=== PATIENT | male | born 1965 | race African-American/Black ===

== ENCOUNTER 2018-04-13 14:41 | Inpatient (IN) | payer OTHER ==
[2018-04-13 17:09] VITALS: BMI 21.1
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
[2018-04-13] MEDS ORDERED: MENTHOL/PHENOL 1 EACH UD MM PRN (18:00)
[2018-04-13] MEDS ORDERED: MAG HYDROX/AL HYDROX/SIMETH 30 ML UNIT-DOSE CUP PO PRN (18:00)
[2018-04-13] MEDS ORDERED: P-EPHED 60MG/TRIPROLIDI 2.5MG TABLET PO PRN (18:00)
[2018-04-13] MEDS ORDERED: LOPERAMIDE HCL 2 MG CAPSULE PO PRN (18:00)
[2018-04-13] MEDS ORDERED: MAGNESIUM HYDROX 2400MG/30ML ORAL SUSPENSION 30 ML CUP PO PRN (18:00)
[2018-04-13] MEDS ORDERED: ACETAMINOPHEN 325 MG TABLET (FP) PO PRN (18:00)
[2018-04-13] MEDS ORDERED: NICOTINE POLACRILEX 4 MG GUM BC PRN (18:00)
[2018-04-13] MEDS ORDERED: IBUPROFEN 400 MG TABLET (FP) PO PRN (18:00)
[2018-04-13] MEDS ORDERED: MAGNESIUM CITRATE 300 ML BOTTLE PO PRN (18:00)
[2018-04-13] MEDS ORDERED: hydrOXYzine PAMOATE 50 MG CAPSULE (FP) PO PRN (18:00)
[2018-04-13] MEDS ORDERED: guaiFENesin/D-METHORPHAN HB 10 ML UNIT-DOSE CUPS PO PRN (18:00)
[2018-04-13] MEDS ORDERED: ALBUTEROL SO4 18 GM HFA INHALER IH PRN (18:03)
[2018-04-13] MEDS ORDERED: WITCH HAZEL 50% (TUCKS) 40 PAD/JAR PAD TP PRN (18:05)
[2018-04-13] MEDS ORDERED: PHENYLEPHRINE 0.25%/STARCH 1 EACH SUPP.RECT RC ONE (19:00)
[2018-04-13] MEDS ORDERED: METHADONE HCL 10 MG TABLET (FOR DETOX USE ONLY) PO ONE ×2 (19:00→23:00)
[2018-04-13] MEDS ORDERED: MELATONIN 5 MG TABLETS PO PRN (22:00)
[2018-04-13] MEDS ORDERED: METHADONE HCL 10 MG TABLET ONE ×2 (23:46→23:47)
[2018-04-13] MEDS: THIAMINE HCL 100 MG TABLET (FP) PO SCH (23:52)
[2018-04-13] MEDS: diazePAM 5 MG TABLET PO PRN (23:52)
[2018-04-14] MEDS ORDERED: METHADONE HCL 10 MG TABLET (FOR DETOX USE ONLY) PO ONE (10:00)
[2018-04-14 10:19] LABS: HEMATOCRIT 38.7 % (35.4-49); HEMOGLOBIN 13.1 GM/dL (11.7-16.9); MCH 31.2 pg (25.7-33.7); MCHC 33.9 g/dl (32.0-35.9); MEAN CELL VOLUME 92.3 fl (80-96); MEAN PLT VOLUME 9.8 fl (7.5-11.1); PLATELET COUNT 199 K/MM3 (134-434); RBC 4.19 M/mm3 (4.00-5.60); RDW 13.7 % (11.9-15.9); WHITE BLOOD COUNT 4.3 K/mm3 (4.0-10.0)
[2018-04-14] MEDS: diazePAM 5 MG TABLET PO PRN ×3 (10:35→22:10)
[2018-04-14] MEDS: NICOTINE 21 MG/24 HOURS TOPICAL PATCH TD SCH (10:35)
[2018-04-14] MEDS: PRENATAL VITAMINS W/ FOLIC ACID TABLET (FP) PO SCH (10:36)
[2018-04-14 11:28] LABS: CHLORIDE 106 mmol/L (98-107); POTASSIUM 4.4 mmol/L (3.5-5.1); SODIUM 142 mmol/L (136-145)
[2018-04-14 11:33] LABS: ALBUMIN 3.6 g/dl (3.4-5.0); ALK PHOS 94 U/L (45-117); ANION GAP 6 (8-16); BILIRUBIN,TOTAL 0.5 mg/dL (0.2-1.0); BLOOD UREA NITROGEN 21 mg/dL (7-18); CALCIUM 8.5 mg/dL (8.5-10.1); CO2 30 mmol/L (21-32); CREATININE 1.2 mg/dL (0.7-1.3); GLUCOSE,RANDOM 77 mg/dL (74-106); SGOT/AST 22 U/L (15-37); SGPT/ALT 27 U/L (12-78); TOT PROT 6.5 g/dl (6.4-8.2)
--- NOTE | 2018-04-14 13:31 | PN ---
BHS COWS - Scale Resting Pulse: 0= [place] 80 or Below Sweatin= Chills/Flushing Restless Observation: 3= Extraneous Movement Pupil Size: 0= Normal to Room Light Bone or Joint Aches: 4=Acute Joint/Muscle Pain Runny Nose/ Eye Tearin= None GI Upset > 30mins: 1= Stomach Cramp Tremor Observation of Outstretched Hands: 1= Tremor [place], Not Seen Yawning Observation: 1= 1-2x During Session Anxiety or Irritability: 2=Irritable/Anxious Goose Flesh Skin: 0=Smooth Skin COWS Score: 13 BHS Progress Note (SOAP) Subjective: ANXIETY,IRRITABILITY,LOSS OF APPETITE, MUSCLE ACHES,CRAMPS,ON LEGS AND NECK. REPORTS HX ARTHRITIS. Objective: 04/14/18 13:30 Vital Signs 04/14/18 04/14/18 04/14/18 06:29 06:30 09:28 Temperature 96.7 F L 98.5 F Pulse Rate 66 70 Respiratory 18 18 18 Rate Blood Pressure 118/61 124/76 Laboratory Tests 04/14/18 04/14/18 04/14/18 07:30 07:30 07:30 WBC 4.3 RBC 4.19 Hgb 13.1 Hct 38.7 MCV 92.3 MCH 31.2 MCHC 33.9 RDW 13.7 Plt Count 199 MPV 9.8 Sodium 142 Potassium 4.4 Chloride 106 Carbon Dioxide 30 Anion Gap 6 L BUN 21 H Creatinine 1.2 D Creat Clearance w eGFR > 60 Random Glucose 77 Calcium 8.5 Total Bilirubin 0.5 D AST 22 ALT 27 Alkaline Phosphatase 94 D Total Protein 6.5 Albumin 3.6 RPR Titer Nonreactive UA PENDING Assessment: 04/14/18 13:30 WITHDRAWAL SX Plan: CONTINUE DETOX FLEXERIL 10 MG PO TID INCREASE PO FLUIDS
[2018-04-14] MEDS: CYCLOBENZAPRINE HCL 10 MG TABLET (FP) PO SCH ×2 (14:12→22:10)
[2018-04-14 17:09] LABS: URINE APPEARANCE CLEAR; URINE BILIRUBIN NEGATIVE (<2.0 mg/dL); URINE BLOOD NEGATIVE (NEGATIVE); URINE COLOR LTYELLOW; URINE GLUCOSE (UA) NEGATIVE (NEGATIVE); URINE KETONE NEGATIVE (NEGATIVE); URINE LEUK ESTERASE NEGATIVE (NEGATIVE); URINE NITRITE NEGATIVE (NEGATIVE); URINE PROTEIN NEGATIVE (NEGATIVE); URINE UROBILINOGEN NEGATIVE mg/dL (0.2-1.0)
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
[2018-04-14] MEDS: GABAPENTIN 300 MG CAPSULE (FP) PO SCH (22:10)
[2018-04-14] MEDS: THIAMINE HCL 100 MG TABLET (FP) PO SCH (22:10)
[2018-04-15] MEDS: CYCLOBENZAPRINE HCL 10 MG TABLET (FP) PO SCH ×3 (07:46→22:10)
[2018-04-15] MEDS ORDERED: METHADONE HCL 5 MG TABLET (FOR DETOX USE ONLY) PO ONE (10:00)
[2018-04-15] MEDS: risperiDONE 1 MG TABLET (FP) PO SCH (10:38)
[2018-04-15] MEDS: NICOTINE 21 MG/24 HOURS TOPICAL PATCH TD SCH (10:38)
[2018-04-15] MEDS: GABAPENTIN 300 MG CAPSULE (FP) PO SCH ×2 (10:38→22:10)
[2018-04-15] MEDS: PRENATAL VITAMINS W/ FOLIC ACID TABLET (FP) PO SCH (10:38)
[2018-04-15] MEDS: diazePAM 5 MG TABLET PO PRN ×2 (10:41→22:10)
--- NOTE | 2018-04-15 13:33 | PN ---
S COWS - Scale Resting Pulse: 0= [place] 80 or Below Sweatin= Chills/Flushing Restless Observation: 3= Extraneous Movement Pupil Size: 2= Moderately Dilated Bone or Joint Aches: 1= Mild Discomfort Runny Nose/ Eye Tearin= None GI Upset > 30mins: 0= None Tremor Observation of Outstretched Hands: 2= Slight Tremor Visible Yawning Observation: 1= 1-2x During Session Anxiety or Irritability: 2=Irritable/Anxious Goose Flesh Skin: 0=Smooth Skin COWS Score: 12 S Progress Note (SOAP) Subjective: SLIGHT ANXIETY,REPORTS FLEXERIL EFFECTIVE FOR MUSCLE ACHES AND CRAMPS. Objective: 04/15/18 13:34 Vital Signs 04/15/18 04/15/18 04/15/18 06:07 06:30 10:14 Temperature 97.5 F L 97.4 F L Pulse Rate 75 65 Respiratory 18 18 18 Rate Blood Pressure 120/81 106/68 Laboratory Tests 04/14/18 04/14/18 04/14/18 07:30 07:30 07:30 WBC 4.3 RBC 4.19 Hgb 13.1 Hct 38.7 MCV 92.3 MCH 31.2 MCHC 33.9 RDW 13.7 Plt Count 199 MPV 9.8 Sodium 142 Potassium 4.4 Chloride 106 Carbon Dioxide 30 Anion Gap 6 L BUN 21 H Creatinine 1.2 D Creat Clearance w eGFR > 60 Random Glucose 77 Calcium 8.5 Total Bilirubin 0.5 D AST 22 ALT 27 Alkaline Phosphatase 94 D Total Protein 6.5 Albumin 3.6 Urine Color Urine Appearance Urine pH Ur Specific [place] Urine Protein Urine Glucose (UA) Urine Ketones Urine Blood Urine Nitrite Urine Bilirubin Urine Urobilinogen Ur Leukocyte Esterase RPR Titer HIV 1&2 Antibody Screen Negative HIV P24 Antigen Negative 04/14/18 04/14/18 07:30 14:00 WBC RBC Hgb Hct MCV MCH MCHC RDW Plt Count MPV Sodium Potassium Chloride Carbon Dioxide Anion Gap BUN Creatinine Creat Clearance w eGFR Random Glucose Calcium Total Bilirubin AST ALT Alkaline Phosphatase Total Protein Albumin Urine Color Ltyellow Urine Appearance Clear Urine pH 5.0 Ur Specific [place] 1.018 Urine Protein Negative Urine Glucose (UA) Negative Urine Ketones Negative Urine Blood Negative Urine Nitrite Negative Urine Bilirubin Negative Urine Urobilinogen Negative Ur Leukocyte Esterase Negative RPR Titer Nonreactive HIV 1&2 Antibody Screen HIV P24 Antigen Assessment: 04/15/18 13:34 WITHDRAWAL SX Plan: CONTINUE DETOX INCREASE PO FLUIDS
[2018-04-15] MEDS: THIAMINE HCL 100 MG TABLET (FP) PO SCH (22:10)
[2018-04-16] MEDS: CYCLOBENZAPRINE HCL 10 MG TABLET (FP) PO SCH ×3 (06:02→22:19)
[2018-04-16] MEDS: diazePAM 5 MG TABLET PO PRN (06:21)
[2018-04-16] MEDS ORDERED: METHADONE HCL 5 MG TABLET (FOR DETOX USE ONLY) PO ONE (10:00)
[2018-04-16] MEDS: GABAPENTIN 300 MG CAPSULE (FP) PO SCH ×2 (10:19→22:19)
[2018-04-16] MEDS: PRENATAL VITAMINS W/ FOLIC ACID TABLET (FP) PO SCH (10:20)
[2018-04-16] MEDS: NICOTINE 21 MG/24 HOURS TOPICAL PATCH TD SCH (10:22)
[2018-04-16] MEDS: risperiDONE 1 MG TABLET (FP) PO SCH (11:27)
[2018-04-16] MEDS: METHYL SALICYLATE/MENTHOL OINT 30 GM TUBE TP SCH (11:28)
--- NOTE | 2018-04-16 11:58 | PN ---
BHS Progress Note (SOAP) Subjective: Tremors, Body Aches, Fatigue, Sweating. Objective: PATIENT A & O X 2 (UNCERTAIN ABOUT CURRENT DAY / DATE). PATIENT OBSERVED AMBULATING ON UNIT. NO ACUTE DISTRESS. 04/16/18 11:56 Vital Signs Temperature 96.4 F L 04/16/18 09:15 Pulse Rate 102 H 04/16/18 09:15 Respiratory Rate 16 04/16/18 09:15 Blood Pressure 132/92 04/16/18 09:15 O2 Sat by Pulse Oximetry (%) Laboratory Tests 04/14/18 04/14/18 04/14/18 07:30 07:30 07:30 WBC 4.3 RBC 4.19 Hgb 13.1 Hct 38.7 MCV 92.3 MCH 31.2 MCHC 33.9 RDW 13.7 Plt Count 199 MPV 9.8 Sodium 142 Potassium 4.4 Chloride 106 Carbon Dioxide 30 Anion Gap 6 L BUN 21 H Creatinine 1.2 D Creat Clearance w eGFR > 60 Random Glucose 77 Calcium 8.5 Total Bilirubin 0.5 D AST 22 ALT 27 Alkaline Phosphatase 94 D Total Protein 6.5 Albumin 3.6 Urine Color Urine Appearance Urine pH Ur Specific [place] Urine Protein Urine Glucose (UA) Urine Ketones Urine Blood Urine Nitrite Urine Bilirubin Urine Urobilinogen Ur Leukocyte Esterase RPR Titer HIV 1&2 Antibody Screen Negative HIV P24 Antigen Negative 04/14/18 04/14/18 07:30 14:00 WBC RBC Hgb Hct MCV MCH MCHC RDW Plt Count MPV Sodium Potassium Chloride Carbon Dioxide Anion Gap BUN Creatinine Creat Clearance w eGFR Random Glucose Calcium Total Bilirubin AST ALT Alkaline Phosphatase Total Protein Albumin Urine Color Ltyellow Urine Appearance Clear Urine pH 5.0 Ur Specific [place] 1.018 Urine Protein Negative Urine Glucose (UA) Negative Urine Ketones Negative Urine Blood Negative Urine Nitrite Negative Urine Bilirubin Negative Urine Urobilinogen Negative Ur Leukocyte Esterase Negative RPR Titer Nonreactive HIV 1&2 Antibody Screen HIV P24 Antigen LABS NOTED. Assessment: 04/16/18 11:57 WITHDRAWAL SYMPTOMS. Plan: CONTINUE DETOX. INCREASE DAILY PO FLUID INTAKE.
[2018-04-16] MEDS: AMMONIUM LACTATE 12% LOTION 225 GM BOTTLE TP SCH ×2 (15:28→22:20)
[2018-04-16] MEDS: THIAMINE HCL 100 MG TABLET (FP) PO SCH (22:19)
[2018-04-17] MEDS: CYCLOBENZAPRINE HCL 10 MG TABLET (FP) PO SCH ×3 (05:38→22:11)
[2018-04-17] MEDS ORDERED: METHADONE HCL 10 MG TABLET (FOR DETOX USE ONLY) PO ONE (10:00)
[2018-04-17] MEDS: risperiDONE 1 MG TABLET (FP) PO SCH (10:31)
[2018-04-17] MEDS: PRENATAL VITAMINS W/ FOLIC ACID TABLET (FP) PO SCH (10:31)
[2018-04-17] MEDS: NICOTINE 21 MG/24 HOURS TOPICAL PATCH TD SCH (10:31)
[2018-04-17] MEDS: GABAPENTIN 300 MG CAPSULE (FP) PO SCH ×2 (10:31→22:11)
[2018-04-17] MEDS: METHYL SALICYLATE/MENTHOL OINT 30 GM TUBE TP SCH (10:32)
[2018-04-17] MEDS: AMMONIUM LACTATE 12% LOTION 225 GM BOTTLE TP SCH ×2 (10:32→22:12)
--- NOTE | 2018-04-17 14:48 | EKG ---
Test Reason : Blood Pressure : / mmHG Vent. Rate : 075 BPM Atrial Rate : 075 BPM P-R Int : 188 ms QRS Dur : 078 ms QT Int : 378 ms P-R-T Axes : 081 058 049 degrees QTc Int : 422 ms NORMAL SINUS RHYTHM ST ELEVATION, CONSIDER EARLY REPOLARIZATION, PERICARDITIS, OR INJURY ABNORMAL ECG NO PREVIOUS ECGS AVAILABLE Confirmed by MD Curtis Daniel ([id number]) on 04/17/2018 2:47:46 PM Referred By: Confirmed By:James Curtis MD
--- NOTE | 2018-04-17 15:02 | PN ---
BHS Progress Note (SOAP) Subjective: Tremors, Fatigue, Body Aches. Objective: PATIENT A & O X 3, OBSERVED AMBULATING ON UNIT. NO ACUTE DISTRESS. 04/17/18 15:01 Vital Signs Temperature 97.9 F 04/17/18 14:07 Pulse Rate 99 H 04/17/18 14:07 Respiratory Rate 20 04/17/18 14:07 Blood Pressure 134/87 04/17/18 14:07 O2 Sat by Pulse Oximetry (%) Laboratory Tests 04/14/18 04/14/18 04/14/18 07:30 07:30 07:30 WBC 4.3 RBC 4.19 Hgb 13.1 Hct 38.7 MCV 92.3 MCH 31.2 MCHC 33.9 RDW 13.7 Plt Count 199 MPV 9.8 Sodium 142 Potassium 4.4 Chloride 106 Carbon Dioxide 30 Anion Gap 6 L BUN 21 H Creatinine 1.2 D Creat Clearance w eGFR > 60 Random Glucose 77 Calcium 8.5 Total Bilirubin 0.5 D AST 22 ALT 27 Alkaline Phosphatase 94 D Total Protein 6.5 Albumin 3.6 Urine Color Urine Appearance Urine pH Ur Specific [place] Urine Protein Urine Glucose (UA) Urine Ketones Urine Blood Urine Nitrite Urine Bilirubin Urine Urobilinogen Ur Leukocyte Esterase RPR Titer HIV 1&2 Antibody Screen Negative HIV P24 Antigen Negative 04/14/18 04/14/18 07:30 14:00 WBC RBC Hgb Hct MCV MCH MCHC RDW Plt Count MPV Sodium Potassium Chloride Carbon Dioxide Anion Gap BUN Creatinine Creat Clearance w eGFR Random Glucose Calcium Total Bilirubin AST ALT Alkaline Phosphatase Total Protein Albumin Urine Color Ltyellow Urine Appearance Clear Urine pH 5.0 Ur Specific [place] 1.018 Urine Protein Negative Urine Glucose (UA) Negative Urine Ketones Negative Urine Blood Negative Urine Nitrite Negative Urine Bilirubin Negative Urine Urobilinogen Negative Ur Leukocyte Esterase Negative RPR Titer Nonreactive HIV 1&2 Antibody Screen HIV P24 Antigen LABS NOTED. Assessment: 04/17/18 15:01 WITHDRAWAL SYMPTOMS. Plan: CONTINUE DETOX. INCREASE DAILY PO FLUID INTAKE. PATIENT SCHEDULED FOR D/C TOMORROW.
[2018-04-17] MEDS: THIAMINE HCL 100 MG TABLET (FP) PO SCH (22:11)
[2018-04-18] MEDS: CYCLOBENZAPRINE HCL 10 MG TABLET (FP) PO SCH (05:22)
[2018-04-18] MEDS ORDERED: METHADONE HCL 5 MG TABLET (FOR DETOX USE ONLY) PO ONE (06:00)
[2018-04-18 06:16] VITALS: BP 111/72; PULSE 78; TEMP 98
--- NOTE | 2018-04-18 08:30 | DS ---
[facility] Detox Discharge Summary Admission Date: 04/13/18 Discharge Date: 04/18/18 - History Present History: Opioid Dependence Additional Comments: DETOX COMPLETED. ALERT O X 3. NAD. FOLLOW UO WITH [facility] [place] [place] FOR MEDICAL MANAGEMENT. Pertinent Past History: PLEASE SEE DX BELOW - Physical Exam Results Vital Signs: Vital Signs Temperature 98 F 04/18/18 06:16 Pulse Rate 78 04/18/18 06:16 Respiratory Rate 18 04/18/18 06:16 Blood Pressure 111/72 04/18/18 06:16 O2 Sat by Pulse Oximetry (%) Pertinent Admission Physical Exam Findings: WITHDRAWAL SX Laboratory Tests 04/14/18 04/14/18 04/14/18 07:30 07:30 07:30 WBC 4.3 RBC 4.19 Hgb 13.1 Hct 38.7 MCV 92.3 MCH 31.2 MCHC 33.9 RDW 13.7 Plt Count 199 MPV 9.8 Sodium 142 Potassium 4.4 Chloride 106 Carbon Dioxide 30 Anion Gap 6 L BUN 21 H Creatinine 1.2 D Creat Clearance w eGFR > 60 Random Glucose 77 Calcium 8.5 Total Bilirubin 0.5 D AST 22 ALT 27 Alkaline Phosphatase 94 D Total Protein 6.5 Albumin 3.6 Urine Color Urine Appearance Urine pH Ur Specific [place] Urine Protein Urine Glucose (UA) Urine Ketones Urine Blood Urine Nitrite Urine Bilirubin Urine Urobilinogen Ur Leukocyte Esterase RPR Titer HIV 1&2 Antibody Screen Negative HIV P24 Antigen Negative 04/14/18 04/14/18 07:30 14:00 WBC RBC Hgb Hct MCV MCH MCHC RDW Plt Count MPV Sodium Potassium Chloride Carbon Dioxide Anion Gap BUN Creatinine Creat Clearance w eGFR Random Glucose Calcium Total Bilirubin AST ALT Alkaline Phosphatase Total Protein Albumin Urine Color Ltyellow Urine Appearance Clear Urine pH 5.0 Ur Specific [place] 1.018 Urine Protein Negative Urine Glucose (UA) Negative Urine Ketones Negative Urine Blood Negative Urine Nitrite Negative Urine Bilirubin Negative Urine Urobilinogen Negative Ur Leukocyte Esterase Negative RPR Titer Nonreactive HIV 1&2 Antibody Screen HIV P24 Antigen - Treatment Hospital Course: Detox Protocol Followed, Detoxed Safely, Responded well, Discharged Condition Good - Medication Discharge Medications: Ambulatory Orders Gabapentin 600 mg PO BID 04/13/18 Pregabalin [Lyrica -] 100 mg PO DAILY 04/13/18 Gabapentin [Neurontin] 600 mg PO BID #30 tablet 04/16/18 Risperidone [Risperdal] 1 mg PO DAILY #30 tablet 04/16/18 Albuterol Sulfate Inhaler - [Ventolin HFA Inhaler -] 2 inh PO Q4H PRN #1 cartridge 04/17/18 - Diagnosis (1) Asthma Status: Chronic Qualifiers: Asthma severity: mild Asthma persistence: unspecified Asthma complication type: uncomplicated Qualified Code(s): J45.909 - Unspecified asthma, uncomplicated (2) HTN (hypertension) Status: Chronic Qualifiers: Hypertension type: essential hypertension Qualified Code(s): I10 - Essential (primary) hypertension (3) Hyperlipidemia Status: Chronic Qualifiers: Hyperlipidemia type: pure hypercholesterolemia Qualified Code(s): E78.00 - Pure hypercholesterolemia, unspecified; E78.0 - Pure hypercholesterolemia (4) Opioid dependence with withdrawal Status: Acute (5) Chronic low back pain Status: Chronic Qualifiers: Back pain laterality: unspecified (6) Nicotine dependence Status: Acute Qualifiers: Nicotine product type: cigarettes Substance use status: in withdrawal Qualified Code(s): F17.213 - Nicotine dependence, cigarettes, with withdrawal - AMA Did Patient Leave Against Medical Advice: No
--- NOTE | 2018-04-18 08:31 | PN ---
BHS Progress Note (SOAP) Subjective: DETOX COMPLETED. ALERT O X 3. PT REPORTS [facility] [place] [place]. Objective: 04/18/18 15:48 Vital Signs - 24 hr 04/17/18 04/17/18 04/18/18 18:03 22:22 00:30 Temperature 97.7 F 97.7 F Pulse Rate 108 H 98 H Respiratory 20 20 18 Rate Blood Pressure 131/84 143/89 04/18/18 04/18/18 03:30 06:16 Temperature 98 F Pulse Rate 78 Respiratory 18 18 Rate Blood Pressure 111/72 Laboratory Tests 04/14/18 04/14/18 04/14/18 07:30 07:30 07:30 WBC 4.3 RBC 4.19 Hgb 13.1 Hct 38.7 MCV 92.3 MCH 31.2 MCHC 33.9 RDW 13.7 Plt Count 199 MPV 9.8 Sodium 142 Potassium 4.4 Chloride 106 Carbon Dioxide 30 Anion Gap 6 L BUN 21 H Creatinine 1.2 D Creat Clearance w eGFR > 60 Random Glucose 77 Calcium 8.5 Total Bilirubin 0.5 D AST 22 ALT 27 Alkaline Phosphatase 94 D Total Protein 6.5 Albumin 3.6 Urine Color Urine Appearance Urine pH Ur Specific [place] Urine Protein Urine Glucose (UA) Urine Ketones Urine Blood Urine Nitrite Urine Bilirubin Urine Urobilinogen Ur Leukocyte Esterase RPR Titer HIV 1&2 Antibody Screen Negative HIV P24 Antigen Negative 04/14/18 04/14/18 07:30 14:00 WBC RBC Hgb Hct MCV MCH MCHC RDW Plt Count MPV Sodium Potassium Chloride Carbon Dioxide Anion Gap BUN Creatinine Creat Clearance w eGFR Random Glucose Calcium Total Bilirubin AST ALT Alkaline Phosphatase Total Protein Albumin Urine Color Ltyellow Urine Appearance Clear Urine pH 5.0 Ur Specific [place] 1.018 Urine Protein Negative Urine Glucose (UA) Negative Urine Ketones Negative Urine Blood Negative Urine Nitrite Negative Urine Bilirubin Negative Urine Urobilinogen Negative Ur Leukocyte Esterase Negative RPR Titer Nonreactive HIV 1&2 Antibody Screen HIV P24 Antigen Assessment: 04/18/18 15:48 MEDICALLY STABLE Plan: D/C TODAY
== END 2018-04-18 08:43 | disposition home or self-care (01) | DRG 773 ==
LOC: YASAS 14:41 → Y3N 18:30
PROVIDERS: ADMIT Surgery; ATTEND Surgery
PROC: HZ2ZZZZ Detoxification Services for Substance Abuse Treatment (ICD-10-PCS; principal; 2018-04-13)
DX: F11.23 Opioid dependence with withdrawal (principal); F14.20 Cocaine dependence, uncomplicated; F17.213 Nicotine dependence, cigarettes, with withdrawal; F41.9 Anxiety disorder, unspecified; F25.9 Schizoaffective disorder, unspecified; I10 Essential (primary) hypertension; J45.909 Unspecified asthma, uncomplicated; E78.5 Hyperlipidemia, unspecified; M54.5 Low back pain; G89.29 Other chronic pain; G47.00 Insomnia, unspecified; Z91.018 Allergy to other foods
CPT/HCPCS: 36415; 80053; 81003; 85027; 86593; 87389; 93005; 93010; J2794

== ENCOUNTER 2024-10-24 15:07 | Inpatient (IN) | payer OTHER ==
[2024-10-24 17:42] VITALS: BMI 22.5
[2024-10-24] MEDS ORDERED: BENZOCAINE/MENTHOL (CHLORASEPTIC ) LOZENGE MM PRN (18:06)
[2024-10-24] MEDS ORDERED: MAGNESIUM HYDROX 2400MG/30ML ORAL SUSPENSION 30 ML CUP PO PRN (18:06)
[2024-10-24] MEDS ORDERED: hydrOXYzine PAMOATE 25 MG CAPSULE (FP) PO PRN (18:06)
[2024-10-24] MEDS ORDERED: NALOXONE (NARCAN) HCL 4 MG/0.1 ML SPRAY NS PRN (18:06)
[2024-10-24] MEDS ORDERED: IBUPROFEN 400 MG TABLET (FP) PO PRN (18:06)
[2024-10-24] MEDS ORDERED: DICYCLOMINE HCL 10 MG CAPSULE PO PRN (18:06)
[2024-10-24] MEDS ORDERED: POLYETHYLENE GLYCOL (HEALTHYLAX) 3350 17 GM PACKET PO PRN (18:06)
[2024-10-24] MEDS ORDERED: guaiFENesin 600 MG TABLET.ER (FP) PO PRN (18:06)
[2024-10-24] MEDS ORDERED: BENZONATATE 200 MG CAPSULE PO PRN (18:06)
[2024-10-24] MEDS ORDERED: MAG HYDROX/AL HYDROX/SIMETH 30 ML UNIT-DOSE CUP PO PRN (18:06)
[2024-10-24] MEDS ORDERED: LOPERAMIDE HCL 2 MG CAPSULE PO PRN (18:06)
[2024-10-24] MEDS ORDERED: ACETAMINOPHEN 325 MG TABLET (FP) PO PRN (18:06)
[2024-10-24] MEDS ORDERED: BISMUTH SUBSALICYLATE 524 MG/30 ML PO PRN (18:06)
[2024-10-24] MEDS ORDERED: NICOTINE POLACRILEX 2 MG GUM BUC PRN (18:06)
[2024-10-24] MEDS ORDERED: chlordiazePOXIDE HCL 25 MG CAPSULE PO PRN (18:06)
[2024-10-24] MEDS ORDERED: chlordiazePOXIDE HCL 25 MG CAPSULE ONE (18:50)
[2024-10-24] MEDS: chlordiazePOXIDE HCL 25 MG CAPSULE PO SCH (19:07)
[2024-10-24] MEDS ORDERED: ALBUTEROL SO4 HFA INHALER IH PRN (19:23)
[2024-10-24] MEDS: THIAMINE 100 MG TABLET PO SCH (22:42)
[2024-10-24] MEDS: METHOCARBAMOL 500 MG TABLET PO PRN (22:42)
[2024-10-24] MEDS: MELATONIN 5 MG TABLETS PO SCH (22:42)
[2024-10-25] MEDS ORDERED: methaDONE HCL 10 MG TABLET PO SCH (08:15)
[2024-10-25] MEDS: PRENATAL VITAMINS W/ FOLIC ACID TABLET (FP) PO SCH (09:47)
[2024-10-25] MEDS: methaDONE 40 MG, methaDONE 20 MG PO ONE (09:47)
[2024-10-25] MEDS: PREGABALIN 100 MG CAPSULE PO SCH (09:47)
[2024-10-25] MEDS: NICOTINE 14 MG/24 HOURS TOPICAL PATCH TD SCH (09:48)
[2024-10-25 11:26] LABS: HEMATOCRIT 38.9 % (35.4-49); HEMOGLOBIN 12.7 GM/dL (11.7-16.9); MCH 29.6 pg (25.7-33.7); MCHC 32.6 g/dl (32.0-35.9); MEAN CELL VOLUME 90.9 fl (80-96); MEAN PLT VOLUME 8.9 fl (7.5-11.1); PLATELET COUNT 249 10^3/uL (134-434); RBC 4.28 M/mm3 (4.00-5.60); RDW 13.9 % (11.9-15.9); WHITE BLOOD COUNT 4.7 K/mm3 (4.0-10.0)
[2024-10-25 11:55] LABS: CHLORIDE 108 mmol/L (98-107); POTASSIUM 4.3 mmol/L (3.5-5.1); SODIUM 141 mmol/L (136-145)
[2024-10-25 11:58] LABS: CALCIUM 8.9 mg/dL (8.5-10.1)
[2024-10-25 11:59] LABS: ALBUMIN 3.3 g/dl (3.4-5.0); ANION GAP 4 mmol/L (4-13); BLOOD UREA NITROGEN 21.9 mg/dL (7-18); CO2 29 mmol/L (21-32); GLUCOSE,RANDOM 79 mg/dL (74-106)
[2024-10-25 12:02] LABS: CREATININE 1.2 mg/dL (0.55-1.3); SGOT/AST 18 U/L (15-37); SGPT/ALT 22 U/L (13-61)
[2024-10-25 12:03] LABS: BILIRUBIN,TOTAL 0.5 mg/dL (0.2-1); TOT PROT 6.3 g/dl (6.4-8.2)
[2024-10-25 12:05] LABS: ALK PHOS 102 U/L (45-117)
[2024-10-25] MEDS: IBUPROFEN 600 MG TABLET (FP) PO PRN (22:16)
[2024-10-26] MEDS: chlordiazePOXIDE HCL 25 MG CAPSULE PO SCH (05:30)
[2024-10-26] MEDS: methaDONE 40 MG, methaDONE 20 MG PO SCH (05:30)
[2024-10-26] MEDS: risperiDONE 1 MG TABLET PO SCH (10:23)
[2024-10-26] MEDS: ONDANSETRON *ODT* 4 MG TABLET SL PRN (22:18)
[2024-10-27] MEDS ORDERED: chlordiazePOXIDE HCL 10 MG CAPSULE PO PRN
[2024-10-27] MEDS: chlordiazePOXIDE HCL 10 MG CAPSULE PO SCH (05:35)
[2024-10-28] MEDS: chlordiazePOXIDE HCL 10 MG CAPSULE PO SCH (05:46)
[2024-10-29] MEDS: chlordiazePOXIDE HCL 10 MG CAPSULE PO ONE (05:15)
[2024-10-29 06:05] VITALS: BP 115/63; RESP 17; TEMP 98.7
[2024-10-29 07:24] VITALS: PULSE 92
[2024-10-29] MEDS ORDERED: NALOXONE (NYS OPIOID OVERDOSE PROGRAM) 4 MG/0.1 ML SPRAY NS PRN (08:45)
== END 2024-10-29 09:20 | disposition home or self-care (01) | DRG 773 ==
LOC: YASAS 15:07 → Y3N 19:03
PROVIDERS: ADMIT Allergy & Immunology; ATTEND Surgery
PROC: HZ2ZZZZ Detoxification Services for Substance Abuse Treatment (ICD-10-PCS; principal; 2024-10-24)
DX: F10.230 Alcohol dependence with withdrawal, uncomplicated (principal); F11.20 Opioid dependence, uncomplicated; F14.20 Cocaine dependence, uncomplicated; F17.210 Nicotine dependence, cigarettes, uncomplicated; F25.9 Schizoaffective disorder, unspecified; F43.10 Post-traumatic stress disorder, unspecified; F41.9 Anxiety disorder, unspecified; F32.A Depression, unspecified; E78.00 Pure hypercholesterolemia, unspecified; I10 Essential (primary) hypertension; J45.909 Unspecified asthma, uncomplicated; M54.50 Low back pain, unspecified; G89.29 Other chronic pain; Z63.4 Disappearance and death of family member
CPT/HCPCS: 36415; 80053; 80307; 85027; 86593; 86780; 93005; 93010; Q0162